=== PATIENT | male | born 1985 | race Caucasian/White ===

== ENCOUNTER 2018-02-14 21:26 | Emergency (ER) | payer SELFPAY ==
[~2018-02-14] VITALS: Ht 193 cm; Wt 131.4 kg
[~2018-02-14 21:26] MED LIST: NOHOMEMEDS
[2018-02-14 21:44] VITALS: BP 152/108
== END 2018-02-14 22:14 | disposition left against medical advice (07) ==
LOC: EME 21:26
DX: S81.812A Laceration without foreign body, left lower leg, initial encounter (principal); Z53.21 Procedure and treatment not carried out due to patient leaving prior to being seen by health care provider

== ENCOUNTER 2018-03-08 17:13 | Emergency (ER) | payer SELFPAY ==
[~2018-03-08] VITALS: Ht 193 cm; Wt 126.1 kg
[2018-03-08 17:26] VITALS: BP 189/115
[2018-03-08 18:11] LABS: HEMOGLOBIN 15.4 G/DL (12.5-16.6); MCHC 35.8 G/DL (30.0-36.0); MCV 89.4 FL (86-99); PLATELET COUNT 221 K/uL (156-360); RBC DIS.WIDTH-CV 11.8 % (11.8-14.6); RBC DIS.WIDTH-SD 38.5 % (39-53); RED BLOOD COUNT 4.81 M/uL (4.00-5.50); WHITE BLOOD COUNT 5.5 K/uL (4.1-10.2)
[2018-03-08 18:18] LABS: ALBUMIN 3.7 g/dL (3.2-4.8); CHLORIDE 105 mEq/L (99-109); POTASSIUM 3.9 mEq/L (3.7-5.4); SODIUM 139 mEq/L (136-147)
[2018-03-08 18:20] LABS: GLUCOSE 87 mg/dL (70-99); TOTAL PROTEIN 6.8 g/dL (6.4-8.3)
[2018-03-08 18:22] LABS: TOTAL BILIRUBIN 0.8 mg/dL (0.0-1.0)
[2018-03-08 18:24] LABS: ALKALINE PHOSPHATASE 96 IU/L (3-129); CREATININE 0.8 mg/dL (0.6-1.3); GFR ESTIMATE (CALCULATED) > 59 mL/min/ (58.99-99999)
[2018-03-08 18:25] LABS: UREA NITROGEN (BUN) 7 mg/dL (9-23)
[2018-03-08 18:26] LABS: AST (GOT) 113 IU/L (2-34)
[2018-03-08 18:27] LABS: ALT (GPT) 187 IU/L (3-49)
[2018-03-08 18:36] LABS: APPEARANCE CLEAR ((CLEAR)); BILIRUBIN NEGATIVE; BLOOD NEGATIVE; COLOR YELLOW ((YELLOW)); GLUCOSE (STRIP) NEGATIVE; KETONES NEGATIVE; LEUKOCYTES NEGATIVE; NITRITE NEGATIVE; PROTEIN (STRIP) NEGATIVE; SPECIFIC GRAVITY 1.019 (1.000-1.030); UCUL ADDED? NO
== END 2018-03-08 19:02 | disposition left against medical advice (07) ==
LOC: EME 17:13
DX: R11.0 Nausea (principal); Z53.21 Procedure and treatment not carried out due to patient leaving prior to being seen by health care provider
CPT/HCPCS: 80053; 81003; 85027; 99281; 99283

== ENCOUNTER 2018-05-27 22:55 | Inpatient (IN) | payer OTHER ==
[~2018-05-27] VITALS: Ht 193 cm; Wt 121.0 kg
[2018-05-28 01:06] LABS: HEMATOCRIT 33.6 % (38.0-50.0); HEMOGLOBIN 11.8 G/DL (12.5-16.6); MCH 30.1 PG (29.0-34.0); MCHC 35.1 G/DL (30.0-36.0); MCV 85.7 FL (86-99); PLATELET COUNT 179 K/uL (156-360); RBC DIS.WIDTH-CV 12.8 % (11.8-14.6); RBC DIS.WIDTH-SD 39.6 % (39-53); RED BLOOD COUNT 3.92 M/uL (4.00-5.50); WHITE BLOOD COUNT 7.7 K/uL (4.1-10.2)
[2018-05-28 01:10] LABS: INTER. NORMALIZED RATIO 1.1
[2018-05-28 01:13] LABS: PTT 28.7 SEC (25-37)
[2018-05-28 01:17] LABS: ALBUMIN 3.4 g/dL (3.2-4.8); CHLORIDE 105 mEq/L (99-109); POTASSIUM 4.2 mEq/L (3.7-5.4); SODIUM 136 mEq/L (136-147)
[2018-05-28 01:20] LABS: GLUCOSE 93 mg/dL (70-99); TOTAL PROTEIN 6.9 g/dL (6.4-8.3)
[2018-05-28 01:21] LABS: TOTAL BILIRUBIN 0.8 mg/dL (0.0-1.0)
[2018-05-28 01:23] LABS: ALKALINE PHOSPHATASE 73 IU/L (3-129); CREATININE 0.8 mg/dL (0.6-1.3); GFR ESTIMATE (CALCULATED) > 59 mL/min/ (58.99-99999)
[2018-05-28 01:24] LABS: UREA NITROGEN (BUN) 9 mg/dL (9-23)
[2018-05-28 01:25] LABS: AST (GOT) 44 IU/L (2-34)
[2018-05-28 01:26] LABS: ALT (GPT) 92 IU/L (3-49)
[2018-05-28 07:38] VITALS: BP 159/91
[2018-05-28 11:12] VITALS: BP 124/78
[2018-05-28] MEDS ORDERED: MECLIZINE HCL25 MG PO (12:39)
[2018-05-28] MEDS ORDERED: IMODIUM A-D2 M2 PO (12:40)
[2018-05-28] MEDS ORDERED: ACETAMINOPHEN325 M1 PO (12:41)
[2018-05-28 15:35] VITALS: BP 136/75
[2018-05-28 20:06] VITALS: BP 132/72
[2018-05-29 00:24] VITALS: BP 143/71
[2018-05-29 05:25] LABS: BASOPHIL (%) 0.3 % (0-1); EOSINOPHIL (%) 0.4 % (0-5); HEMATOCRIT 31.5 % (38.0-50.0); HEMOGLOBIN 11.3 G/DL (12.5-16.6); IMMATURE GRANULOCYTE (%) 0.4 % (0.0-0.7); LYMPHOCYTE (%) 24.4 % (15-42); LYMPHOCYTE COUNT 1.7 K/uL (1.0-2.8); MCHC 35.9 G/DL (30.0-36.0); MCV 83.6 FL (86-99); MONOCYTE (%) 5.6 % (3-12); MONOCYTE COUNT 0.4 K/uL (0-0.8); NEUTROPHIL (%) 68.9 % (45-76); NEUTROPHIL COUNT 4.8 K/uL (1.8-6.4); PLATELET COUNT 201 K/uL (156-360); RBC DIS.WIDTH-CV 12.7 % (11.8-14.6); RBC DIS.WIDTH-SD 38.3 % (39-53); RED BLOOD COUNT 3.77 M/uL (4.00-5.50)
[2018-05-29 07:44] VITALS: BP 145/63
[2018-05-29 11:32] VITALS: BP 136/59
[2018-05-29 15:31] VITALS: BP 134/71
[2018-05-29 20:21] VITALS: BP 139/80
[2018-05-30 00:46] VITALS: BP 134/80
[2018-05-30 08:18] VITALS: BP 142/75
[2018-05-30 11:21] LABS: HEPATITIS B SURFACE ANTIGEN Nonreactive
[2018-05-30 11:30] LABS: HEPATITIS C ANTIBODY REACTIVE
[2018-05-30 12:57] VITALS: BP 137/80
[2018-05-30 15:50] VITALS: BP 133/80
[2018-05-30 20:27] VITALS: BP 130/66
[2018-05-31 00:12] VITALS: BP 137/65
[2018-05-31 10:17] VITALS: BP 134/89
[2018-05-31] MEDS ORDERED: BACTRIM,SEPT1 TABLET PO (14:41)
[2018-05-31] MEDS ORDERED: IMODIUM A-D2 M2 PO (14:42)
== END 2018-05-31 15:11 | DRG 264 ==
LOC: EME → EDBD 22:55 → EME 22:55 → EDOF 05-28 05:46 → 4SOUTH 05-28 07:32
PROVIDERS: Emergency Medicine; Internal Medicine; Physician Assistant
PROC: 0JBG0ZZ Excision of Right Lower Arm Subcutaneous Tissue and Fascia, Open Approach (ICD-10-PCS; principal; 2018-05-30)
DX: I96 Gangrene, not elsewhere classified (principal); L02.413 Cutaneous abscess of right upper limb; L03.113 Cellulitis of right upper limb; M60.9 Myositis, unspecified; B95.62 Methicillin resistant Staphylococcus aureus infection as the cause of diseases classified elsewhere; D63.8 Anemia in other chronic diseases classified elsewhere; F11.20 Opioid dependence, uncomplicated; F17.210 Nicotine dependence, cigarettes, uncomplicated; F60.9 Personality disorder, unspecified; Z91.5 Personal history of self-harm; B19.20 Unspecified viral hepatitis C without hepatic coma
CPT/HCPCS: 73201; 80053; 80202; 83605; 85025; 85027; 85610; 85730; 86803; 87040; 87070; 87075; 87077; 87147; 87186; 87205; 87340; 93971; 99281; 99285; C1753; G0378; J1650; J2060; J2270; J2543; J3370; J7030; J7050